=== PATIENT | female | born 2005 | race Caucasian/White ===

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

== ENCOUNTER 2025-01-13 22:45 | Inpatient (IN) | payer OTHER ==
[~2025-01-13] VITALS: Ht 165.1 cm; Wt 90.7 kg
[2025-01-14] MEDS ORDERED: MAGNESIUM HYDROXIDE/AL HYDROX 30 ML CUP PO PRN ×2 (00:15→13:15)
[2025-01-14] MEDS ORDERED: LIDOCAINE HCL 1% 30 ML SDV INJ PRN (00:15)
[2025-01-14] MEDS ORDERED: LACTATED RINGER'S 1,000 ML IV PRN (00:15)
[2025-01-14] MEDS ORDERED: TERBUTALINE SULFATE 1 MG/ML AMP SUB-Q PRN (00:15)
[2025-01-14] MEDS ORDERED: OXYTOCIN/0.9 % SODIUM CHLORIDE 30 UNITS/500 ML BAG IV SCH ×2 (00:15→04:30)
[2025-01-14] MEDS ORDERED: LACTATED RINGER'S 1,000 ML IV SCH ×3 (00:15→18:00)
[2025-01-14] MEDS ORDERED: CALCIUM CARBONATE 500 MG CHEW PO PRN ×2 (00:15→13:15)
[2025-01-14 00:30] LABS: MCH 32.4 PG (25.6-32.2); MCHC 33.9 g/dL (32.2-35.5); MCV 95.4 fL (79.4-94.8); RBC 4.11 M/uL (3.93-5.22)
[2025-01-14 00:59] VITALS: BP 111/74
[2025-01-14 01:01] LABS: ABO O; RH POSITIVE
[2025-01-14 01:02] LABS: ANTIBODY SCREEN NEGATIVE
[2025-01-14 01:08] LABS: AMPHETAMINES, URINE POSITIVE (NEGATIVE); BARBITURATES, URINE NEGATIVE (NEGATIVE); BENZODIAZEPINE, URINE NEGATIVE (NEGATIVE); CANNABINOID, URINE POSITIVE (NEGATIVE); COCAINE, URINE NEGATIVE (NEGATIVE); ECSTASY, URINE NEGATIVE (NEGATIVE); FENTANYL, URINE NEGATIVE (NEGATIVE); METHADONE, URINE NEGATIVE (NEGATIVE); OPIATES, URINE NEGATIVE (NEGATIVE); OXYCODONE, URINE NEGATIVE (NEGATIVE); PHENCYCLIDINE, URINE NEGATIVE (NEGATIVE)
[2025-01-14] MEDS ORDERED: ROPIVACAINE 0.2% 200 ML BAG ONE (04:26)
[2025-01-14] MEDS ORDERED: ROPIVACAINE 0.2% 200 ML BAG EPIDURAL SCH (05:15)
[2025-01-14] MEDS ORDERED: ePHEDrine sulfate 5 MG/ML SYRINGE IV PRN (05:15)
[2025-01-14] MEDS ORDERED: LACTATED RINGER'S 2,000 ML IV ONE (05:15)
[2025-01-14] MEDS ORDERED: LACTATED RINGER'S 500 ML IV PRN (05:15)
[2025-01-14 06:28] VITALS: BP 162/82
[2025-01-14] MEDS ORDERED: LABETALOL HCL 100 MG/20 ML MDV IV PRN ×3 (06:30)
[2025-01-14] MEDS ORDERED: CALCIUM GLUCONATE 1,000 MG/10 ML VIAL IV PRN ×2 (06:45→18:00)
[2025-01-14] MEDS ORDERED: MAGNESIUM SULFATE 4 GM/100 ML BAG IV ONE (06:45)
[2025-01-14] MEDS ORDERED: MAGNESIUM SULFATE 500 ML IV SCH ×2 (06:45→18:00)
[2025-01-14] MEDS ORDERED: fentaNYL citrate 100 MCG/2 ML VIAL ONE ×2 (07:50→08:17)
[2025-01-14] MEDS ORDERED: fentaNYL citrate 100 MCG/2 ML VIAL IV PRN (08:00)
[2025-01-14 08:01] LABS: MCH 32.9 PG (25.6-32.2); MCHC 34.1 g/dL (32.2-35.5); MCV 96.3 fL (79.4-94.8); RBC 4.32 M/uL (3.93-5.22)
[2025-01-14 08:04] LABS: AST (SGOT) 27.0 U/L (15-37); GLOMERULAR FILTRATION RATE,EST 109.0 mL/min (>60); UREA NITROGEN 8.0 mg/dL (7-18)
[2025-01-14 08:06] LABS: PROTEIN, RANDOM URINE 27.0 mg/dL (NOT ESTABLISHED)
[2025-01-14] MEDS ORDERED: LIDOCAINE 2% W/ EPI 1:200,000 20 ML SDV ONE (08:17)
[2025-01-14 10:48] LABS: IS CROSSMATCH COMPATIBLE
[2025-01-14] MEDS ORDERED: MORPHINE SULFATE 1 MG/ML VIAL ONE (11:06)
[2025-01-14] MEDS ORDERED: SENNOSIDES/DOCUSATE 1 EA TAB PO SCH (13:06)
[2025-01-14] MEDS ORDERED: WITCH HAZEL/GLYCERIN 1 EA PAD TOP PRN (13:15)
[2025-01-14] MEDS ORDERED: MAGNESIUM HYDROXIDE 30 ML UDC PO PRN (13:15)
[2025-01-14] MEDS ORDERED: HYDROCORTISONE ACETATE 25 MG SUPP PR PRN (13:15)
[2025-01-14] MEDS ORDERED: OXYTOCIN/0.9 % SODIUM CHLORIDE 500 ML IV SCH (13:15)
[2025-01-14] MEDS ORDERED: LIDOCAINE 2% VISCOUS 6 ML SYR TOP ONE ×2 (13:15)
[2025-01-14] MEDS ORDERED: BENZOCAINE 60 ML AEROSOL TOP PRN (13:15)
[2025-01-14] MEDS ORDERED: IBUPROFEN 800 MG TAB PO SCH (14:00)
[2025-01-14] MEDS ORDERED: ACETAMINOPHEN 500 MG TAB PO SCH (14:00)
[2025-01-14] MEDS ORDERED: MAGNESIUM SULFATE 500 ML IV ONE (17:49)
== END 2025-01-15 17:59 | disposition home or self-care (01) | DRG 807 ==
LOC: FBCO 22:45 → FBC 23:53
PROVIDERS: ADMIT Obstetrics & Gynecology; ATTEND Obstetrics & Gynecology
PROC: 10E0XZZ Delivery of Products of Conception, External Approach (ICD-10-PCS; principal; 2025-01-14)
PROC: 3E0R3BZ Introduction of Anesthetic Agent into Spinal Canal, Percutaneous Approach (ICD-10-PCS; 2025-01-14)
PROC: 00HU33Z Insertion of Infusion Device into Spinal Canal, Percutaneous Approach (ICD-10-PCS; 2025-01-14)
DX: O36.4XX0 Maternal care for intrauterine death, not applicable or unspecified (principal); Z37.1 Single stillbirth; Z3A.40 40 weeks gestation of pregnancy; O99.824 Streptococcus B carrier state complicating childbirth
CPT/HCPCS: 01960; 36415; 80307; 82565; 82570; 83735; 84156; 84450; 84520; 84550; 85027; 85060; 86850; 86900; 86901; 86922; A9270; J2274; J2795; J3010; J3105; J3475; J7121